=== PATIENT | male | born 1955 | race Caucasian/White ===

== ENCOUNTER → 2021-06-24 | Outpatient (CLI) | payer OTHER ==
[~2021-06-24] MED LIST: AUGMENTIN 875-1 EACH PO; DEMADEX20 MG PO; HYDROCHLOROTHIA25 M1 PO; HYDROCODON-ACE1 EAC7 PO; IBU800 MG PO; LOSARTAN POTASS50 MG PO; MOBIC7.5 MG PO; NAPROSYN500 MG PO; NORVASC5 MG PO; OMEPRAZOLE 20 M20 M1 PO; TOPROL XL100 MG PO; ZOFRAN ODT4 MG DISSOLVE
== END ==
LOC: M.LAB 05:28
PROVIDERS: ATTEND Anesthesiology
DX: E87.6 Hypokalemia (principal)

== ENCOUNTER 2021-06-26 07:47 | Emergency (ER) | payer OTHER ==
[~2021-06-26] VITALS: Ht 182.9 cm; Wt 97.5 kg
[~2021-06-26 07:47] MED LIST changes: -AUGMENTIN 875-1 EACH PO; -HYDROCODON-ACE1 EAC7 PO; -IBU800 MG PO; -NORVASC5 MG PO; -TOPROL XL100 MG PO; -ZOFRAN ODT4 MG DISSOLVE
[2021-06-26] MEDS ORDERED: TOPROL XL100 MG PO (07:59)
[2021-06-26] MEDS ORDERED: IBU800 MG PO (07:59)
[2021-06-26] MEDS ORDERED: NORVASC5 MG PO (07:59)
[2021-06-26 08:20] LABS: ABSOLUTE EOSINOPHILS 0.2 thou/uL (0.0-0.7); ABSOLUTE LYMPHOCYTES 2.2 thou/uL (0.8-5.3); ABSOLUTE MONOCYTES 1.2 thou/uL (0.0-1.2); ABSOLUTE NEUTROPHILS 4.5 thou/uL (1.6-8.1); BASOPHILS 0.5 %; EOSINOPHILS 2.4 %; LYMPHOCYTES 27.2 %; MCH 30.8 pg (26.0-34.0); MCV 90.4 fL (80.0-100.0); MONOCYTES 14.3 %; MPV 7.8 fl. (7.2-11.1); NUCLEATED RBCS 0 /100WBC; PLATELET COUNT* 230 thou/uL (150-400); POLYS 55.6 %; RBC 4.87 mil/uL (4.50-6.00); WBC 8.2 thou/uL (4.0-11.0)
[2021-06-26 08:25] LABS: URINE BILIRUBIN NEGATIVE (Negative); URINE BLOOD TRACE (Negative); URINE CLARITY CLEAR; URINE COLOR YELLOW; URINE GLUCOSE-RANDOM NEGATIVE (Negative); URINE KETONES NEGATIVE (Negative); URINE LEUKOCYTES-REFLEX NEGATIVE (Negative); URINE NITRITE-REFLEX NEGATIVE (Negative); URINE PROTEIN NEGATIVE (Negative); URINE SPECIFIC GRAVITY 1.015 (1.005-1.030); URINE UROBILINOGEN 0.2 E.U./dl (0.2-1.0)
[2021-06-26 08:30] LABS: ANION GAP < 0 mmol/L (7-16); BUN 14 mg/dL (7-18); CHLORIDE 100 mmol/L (98-107); CO2 31 mmol/L (21-32); GLUCOSE 140 mg/dL (70-99); POTASSIUM 3.1 mmol/L (3.5-5.1); SODIUM 126 mmol/L (136-145)
[2021-06-26 08:35] LABS: ALBUMIN 3.5 g/dL (3.4-5.0); ALKALINE PHOSPHATASE 86 U/L (46-116); LIPASE 91 U/L (73-393); SGPT 40 U/L (30-65); TOTAL BILIRUBIN 0.4 mg/dL (<0.1-1.0); TOTAL PROTEIN 8.1 g/dL (6.4-8.2)
[2021-06-26 09:05] LABS: SGOT 31 U/L (15-37)
[2021-06-26 11:34] LABS: CALCIUM 7.7 mg/dL (8.5-10.1); CREATININE 0.9 mg/dL (0.6-1.3); POTASSIUM 3.5 mmol/L (3.5-5.1)
[2021-06-26] MEDS ORDERED: HYDROCODON-ACE1 EAC7 PO (12:07)
[2021-06-26] MEDS ORDERED: ZOFRAN ODT4 MG DISSOLVE (12:07)
[2021-06-26] MEDS ORDERED: AUGMENTIN 875-1 EACH PO (12:07)
[2021-06-26 12:22] VITALS: BP 141/77
--- NOTE | 2021-06-26 14:47 | EKG ---
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[facility] [place] : 1955 Requested By: Chris Cha Order Number: [id number] : Yunior Joyner Measurements Intervals [place] Rate: 72 P: 33 CO: 178 QRS: 20 QRSD: 147 T: 182 QT: 426 QTc: 467 Interpretive Statements Sinus rhythm Probable left atrial enlargement Left bundle branch block No previous ECG available for comparison Electronically Signed On 06-26-2021 14:47:09 CDT by Yunior Joyner [email or web address] <ELECTRONICALLY SIGNED> By: Yunior Joyner MD, [facility] 06/26/21 1447 2 2 Yunior Joyner MD, [facility] /EPI
== END 2021-06-26 12:23 | disposition home or self-care (01) ==
LOC: M.ERS 07:47
PROVIDERS: Emergency Medicine Emergency Medical Services
DX: R10.32 Left lower quadrant pain (principal); I10 Essential (primary) hypertension; Z98.890 Other specified postprocedural states; Z79.899 Other long term (current) drug therapy

== ENCOUNTER 2021-07-05 07:40 | Emergency (ER) | payer OTHER, MEDICARE ==
[~2021-07-05] VITALS: Ht 182.9 cm; Wt 95.3 kg
[~2021-07-05 07:40] MED LIST changes: +AUGMENTIN 875-1 EACH PO; +HYDROCODON-ACE1 EAC7 PO; +IBU800 MG PO; +NORVASC5 MG PO; +TOPROL XL100 MG PO; +ZOFRAN ODT4 MG DISSOLVE
[2021-07-05] MEDS ORDERED: TORSEMIDE20 MG PO (08:04)
[2021-07-05 09:08] LABS: ABSOLUTE EOSINOPHILS 0.2 thou/uL (0.0-0.7); ABSOLUTE LYMPHOCYTES 2.2 thou/uL (0.8-5.3); ABSOLUTE MONOCYTES 1.1 thou/uL (0.0-1.2); ABSOLUTE NEUTROPHILS 4.5 thou/uL (1.6-8.1); BASOPHILS 0.5 %; EOSINOPHILS 2.1 %; HEMATOCRIT 43.7 % (42.0-52.0); HEMOGLOBIN 14.6 gm/dL (14.0-18.0); LYMPHOCYTES 27.4 %; MCH 30.4 pg (26.0-34.0); MCHC 33.5 g/dL (28.0-37.0); MCV 90.9 fL (80.0-100.0); MONOCYTES 13.8 %; NUCLEATED RBCS 0 /100WBC; PLATELET COUNT* 217 thou/uL (150-400); POLYS 56.2 %; RBC 4.81 mil/uL (4.50-6.00); RDW-CV 13.7 % (10.5-14.5)
[2021-07-05 09:16] LABS: CALCIUM 8.4 mg/dL (8.5-10.1); CREATININE 0.8 mg/dL (0.6-1.3); POTASSIUM 4.1 mmol/L (3.5-5.1)
[2021-07-05 09:21] LABS: ALBUMIN 3.4 g/dL (3.4-5.0); TOTAL BILIRUBIN 0.4 mg/dL (<0.1-1.0); TOTAL PROTEIN 8.1 g/dL (6.4-8.2)
--- NOTE | 2021-07-05 10:04 | EKG ---
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 : 1955 Requested By: Chris Cha Order Number: [id number] MD: Francisco Vasquez Measurements Intervals [place] Rate: 68 P: 34 UT: 182 QRS: 4 QRSD: 145 T: 144 QT: 435 QTc: 463 Interpretive Statements Sinus rhythm Atrial premature complex Left bundle branch block Compared to ECG 06/26/2021 08:13:21 Atrial premature complex(es) now present Electronically Signed On 07-05-2021 10:04:04 CDT by Francisco Vasquez [email or web address] <ELECTRONICALLY SIGNED> By: Francisco Vasquez MD, [facility] 07/05/21 1004 0836 0836 Francisco Vasquez MD, [facility] /EPI
[2021-07-05 10:30] VITALS: BP 141/75
== END 2021-07-05 10:31 | disposition home or self-care (01) ==
LOC: M.ERS 07:40
PROVIDERS: Emergency Medicine Emergency Medical Services
DX: I10 Essential (primary) hypertension (principal); I95.1 Orthostatic hypotension; Z79.899 Other long term (current) drug therapy; Z98.890 Other specified postprocedural states